=== PATIENT | male | born 1970 | race Caucasian/White ===

== ENCOUNTER 2025-03-29 13:00 | Outpatient (REF) | payer OTHER, SELFPAY ==
[2025-03-29 15:56] LABS: HCT 47.1 % (40.0-50.0); HGB 15.9 g/dL (13.5-17.5); MCH 28.1 pg (27.0-33.0); MCHC 33.8 % (32.0-36.0); MCV 83 fL (80-95); MPV 11.3 fL (8.0-11.0); Platelet Count 254 10^3/uL (130-400); RBC 5.65 10^6/uL (4.36-5.78); RDW 12.3 % (11.8-14.1); RDW-SD 37.2 fL; WBC 6.63 10^3/uL (4.4-10.8)
[2025-03-29 16:08] LABS: ALT 56 U/L (16-63); AST 29 U/L (15-37); Albumin 3.8 g/dL (3.4-5.0); Alkaline Phosphatase 49 U/L (46-116); Anion Gap 6.4 mmol/L (3-11); BUN 18 mg/dL (7-18); Bilirubin, Total 0.7 mg/dL (0.2-1.0); CO2 31.6 mmol/L (21.0-32.0); Calcium 9.1 mg/dL (8.5-10.1); Calculated LDL 114 mg/dL (<100); Chloride 100 mmol/L (98-107); Cholesterol 213 mg/dL (<200); Estimated GFR 89.44 (mL/min/1.73m2); Glucose 130 mg/dL (74-106); HDL Cholesterol 64 mg/dL (>or=40); Potassium 4.2 mmol/L (3.5-5.1); Sodium 138 mmol/L (136-145); Total Protein 7.4 g/dL (6.4-8.2); Triglyceride 177 mg/dL (<150)
[2025-03-29 16:35] LABS: Hemoglobin A1C 5.7 % (<5.7)
[2025-03-29 23:12] LABS: PSA, Screening 0.8 ng/mL (<=3.5)
== END 2025-03-29 13:01 | disposition home or self-care (01) ==
LOC: NCHCN 13:00
PROVIDERS: PCP Physician Assistant; Visit Provider Physician Assistant
DX: Z13.1 Encounter for screening for diabetes mellitus (principal); E78.2 Mixed hyperlipidemia; E66.3 Overweight; Z12.5 Encounter for screening for malignant neoplasm of prostate
CPT/HCPCS: 80053; 80061; 84153; 85027; 83036